=== PATIENT | female | born 1960 | race Caucasian/White ===

== ENCOUNTER 2020-09-23 14:13 | Observation (INO) | payer OTHER ==
[2020-09-23 16:28] LABS: #Basophils 0.1 thou/uL (0.0-0.2); #Eosinphils 0.2 thou/uL (0.0-0.7); #Lymphocytes 1.4 thou/uL (1.20-3.40); #Monocytes 1.2 thou/uL (0.11-0.59); #Neutrophils 7.8 thou/uL (1.40-6.50); %Basophils 0.7 % (0.0-1.0); %Eosinophils 1.7 % (0.0-10.0); %Lymphocytes 13.2 % (21.0-51.0); %Monocytes 10.9 % (0.0-10.0); %Neutrophils 73.6 % (42.0-75.0); Hemoglobin 13.6 g/dL (12.0-16.0); Mean Corpuscular HGB CONC 32.7 g/dL (32.0-36.0); Mean Corpuscular Hemoglobin 28.5 pg (27.0-31.0); Mean Corpuscular Volume 87.2 fL (78.0-98.0); Mean Platelet Volume 10.1 fL (7.4-10.4); Platelet Count 160 thou/uL (130-400); RBC Distribution Width 11.4 % (11.5-14.5); Red Blood Cell (RBC) Count 4.78 mill/uL (4.20-5.40); White Blood Cell (WBC) Count 10.5 thou/uL (4.8-10.8)
[2020-09-23] MEDS ORDERED: Ketorolac Tromethamine 30 MG/ML VIAL ONE (16:36)
[2020-09-23] MEDS ORDERED: Fentanyl 100 MCG/2 ML VIAL ONE ×2 (16:36→18:24)
[2020-09-23] MEDS ORDERED: Ondansetron PF 4 MG/2 ML Vial ONE (16:36)
[2020-09-23 16:50] LABS: ALT (SGPT) 73 U/L (8-55); AST (SGOT) 17 U/L (5-34); Albumin 3.6 g/dL (3.5-5.0); Alkaline Phosphatase 133 U/L (40-110); Anion Gap 14 mmol/L (10-20); BUN (Urea Nitrogen) 33 mg/dL (9.8-20.1); Bilirubin, Total 0.4 mg/dL (0.2-1.2); Calc. Creatinine Clearance 0 mL/min (70-130); Calcium 9.2 mg/dL (7.8-10.44); Carbon Dioxide 25 mmol/L (22-29); Chloride 106 mmol/L (98-107); Estimated GFR-MDRD 48; Globulin 2.8 g/dL (2.4-3.5); Glucose 147 mg/dL (70-105); Potassium 3.5 mmol/L (3.5-5.1); Protein, Total 6.4 g/dL (6.0-8.3); Sodium 141 mmol/L (136-145)
--- NOTE | 2020-09-23 17:32 | CT ---
CT abdomen and pelvis noncontrast HISTORY: Left flank pain. COMPARISON: 07/28/2020. FINDINGS: Tiny nonspecific subpleural nodules are again demonstrated at each lung base. There is dist ention of the left renal collecting system to the level of an oval calculus at the UPJ that is 0.6 cm width by 0.9 cm length. The left ureter beyond this point is decompressed and runs immediately adj acent to the left ovary contains dystrophic calcification. Tiny calcifications at the inferior pole of the left kidney measure up to 0.3 cm. There is significan t fluid stranding surrounding the left kidney and along the left retroperitoneum adjacent to the ureter. The right renal collecting system and ureter are decompressed. Multiple calcifications within nondila dg calyces are again demonstrated, measuring 0.6 cm greatest diameter at the inferior pole. Urinary bladder is unremarkable. Phleboliths are apparent within the pelvis. Lack of contrast limits evaluation of the soft tissues. Bariatric type surgery of the stomach is evid ent. Gallbladder is surgically absent. Postoperative changes of lumbar spine and right hip are apparent. Intramuscular lipoma associated with the left iliopsoas muscle is apparent. IMPRESSION : High-grade obstruction at a 6 mm x 9 mm left UPJ calculus with findings suggestive of forniceal ruptu re. Additional nonobstructing bilateral renal calculi. Other incidental-type findings are stable.
[2020-09-23 17:45] LABS: Bacteria/HPF 3+ HPF (None Seen); Bilirubin Negative (Negative); Blood, Urine 1+ (Negative); Calcium Oxalate Crystals Rare HPF (None Seen); Clarity Clear (Clear); Glucose, Urine (Dipstick) Normal (Negative); Ketone, Urine 10 mg/dL (Negative); Leukocyte 250 Leu/uL (Negative); Nitrite Negative (Negative); Protein, Urine (Dipstick) Negative (Neg-Trace); Specific Gravity, Urine 1.011 (1.002-1.036); Squamous Epithelial 0-3 HPF (0-3); Urobilinogen Normal mg/dL (Less than 2); WBC/HPF 21-50 HPF (0-3); pH, Urine 7.5 (5.0-9.0)
[2020-09-23] MEDS ORDERED: cefTRIAXone\\ROCEPHIN 2 GM VIAL ONE ×2 (18:24→18:26)
--- NOTE | 2020-09-23 20:27 | PDOC.HHP ---
Hospitalist HPI - History of Present Illness Left flank pain History of Present Illness: 59-year-old woman with a history of nephrolithiasis, history of morbid obesity status post gastric sleeve presented to the emergency department with a complaint of left flank pain, maximum severity 10/10, colicky in nature, no known aggravating or relieving factors, not relieved by Toradol, partially relieved by IV fentanyl given in the ED. UA suggest the presence of UTI. CT abdomen and pelvis done in the emergency department demonstrated high-grade UPJ obstruction secondary to left UPJ calculus with findings suggestive of forniceal rupture. Urologist was contacted in the ED who recommended admission to the spitalist service with IV antibiotics for him to consult. Hospitalist ROS - Review of Systems Other: Patient denied any fever, she denied any chest pain, she denied any nausea vomiting or dysuria. Except as documented, all other systems reviewed and negative. - Medication Medications: Medication Instructions Recorded Confirmed Type Chlorzoxazone [Parafon Forte DSC] 1 tab PO DAILY PRN 05/12/15 09/23/20 History Torsemide [Demadex] 1 tab PO PRN PRN 05/12/15 09/23/20 History Acetaminophen With Codeine 300 mg PO PRN PRN 09/23/20 09/23/20 History [Tylenol with Codeine #3] Hospitalist History - Past Medical History Other Medical History: History of morbid obesity status post gastric sleeve surgery. Nephrolithiasis. - Past Surgical History Other Surgical History: Gastric sleeve surgery Right shoulder surgery. - Family History Other Family History: Mother had dementia and heart failure. Father is diagnosed with liver lesions. - Social History Smoking Status: Never smoker Alcohol: reports: None Living Situation: With Family - Exam General Appearance: NAD, awake alert Eye: PERRL, anicteric sclera ENT: normocephalic atraumatic, moist mucosa Neck: supple, no JVD Heart: RRR, no murmur, normal peripheral pulses Respiratory: CTAB, no wheezes, no rales Gastrointestinal: soft, non-tender, non-distended Extremities: no cyanosis, no edema Skin: normal turgor, no rashes Neurological: cranial nerve grossly intact, no weakness, no focal deficits Musculoskeletal: normal tone, normal strength Psychiatric: normal affect, normal behavior, A&O x 3 Hospitalist Results - Labs Result Diagrams: 09/23/20 16:15 09/23/20 16:15 Lab results: WBC 10.5 thou/uL (4.8-10.8) 09/23/20 16:15 Hgb 13.6 g/dL (12.0-16.0) 09/23/20 16:15 Hct 41.7 % (36.0-47.0) 09/23/20 16:15 MCV 87.2 fL (78.0-98.0) 09/23/20 16:15 Plt Count 160 thou/uL (130-400) 09/23/20 16:15 Neutrophils % 73.6 % (42.0-75.0) 09/23/20 16:15 Sodium 141 mmol/L (136-145) 09/23/20 16:15 Potassium 3.5 mmol/L (3.5-5.1) 09/23/20 16:15 Chloride 106 mmol/L (98-107) 09/23/20 16:15 Carbon Dioxide 25 mmol/L (22-29) 09/23/20 16:15 BUN 33 mg/dL (9.8-20.1) H 09/23/20 16:15 Creatinine 1.15 mg/dL (0.6-1.1) H 09/23/20 16:15 Glucose 147 mg/dL (70-105) H 09/23/20 16:15 Calcium 9.2 mg/dL (7.8-10.44) 09/23/20 16:15 Total Bilirubin 0.4 mg/dL (0.2-1.2) 09/23/20 16:15 AST 17 U/L (5-34) 09/23/20 16:15 ALT 73 U/L (8-55) H 09/23/20 16:15 Alkaline Phosphatase 133 U/L (40-110) H 09/23/20 16:15 Serum Total Protein 6.4 g/dL (6.0-8.3) 09/23/20 16:15 Albumin 3.6 g/dL (3.5-5.0) 09/23/20 16:15 Urine Ketones 10 mg/dL (Negative) A 09/23/20 17:22 Urine Blood 1+ (Negative) A 09/23/20 17:22 Urine Nitrite Negative (Negative) 09/23/20 17:22 Ur Leukocyte Esterase 250 Padmini/uL (Negative) A 09/23/20 17:22 Urine RBC 4-6 HPF (0-3) A 09/23/20 17:22 Urine WBC 21-50 HPF (0-3) A 09/23/20 17:22 Ur Squamous Epith Cells 0-3 HPF (0-3) 09/23/20 17:22 Urine Bacteria 3+ HPF (None Seen) A 09/23/20 17:22 Hospitalist H&P A/P - Problem (1) Nephrolithiasis Status: Acute (2) Ureteric obstruction Code(s): N13.5 - CROSSING VESSEL AND STRICTURE OF URETER W/O HYDRONEPHROSIS Status: Acute (3) UTI (urinary tract infection) Status: Acute - Plan Plan: Admit to medical floor. Patient given IV Levaquin in the ED. Patient allergy to penicillin acknowledged. We will continue IV Levaquin. Consult to urology requested Monitor BMP to follow serum creatinine. Pain management with IV fentanyl. Follow urine culture.
[2020-09-23] MEDS ORDERED: Sodium Chloride 0.9% 1,000 ML IV SCH (20:30)
[2020-09-23 20:36] LABS: SARS-CoV-2 NAA Rapid Test Not Detected (NotDetected)
[2020-09-23] MEDS: Fentanyl 100 MCG/2 ML VIAL SLOW IVP PRN (22:58)
[2020-09-23 23:01] VITALS: BMI 28.3
[2020-09-23] MEDS: Heparin 5,000 UNITS/ML VIAL SC SCH (23:30)
[2020-09-24] MEDS: Ondansetron PF 4 MG/2 ML Vial IVP PRN ×2 (02:12→08:11)
[2020-09-24] MEDS: Fentanyl 100 MCG/2 ML VIAL SLOW IVP PRN ×3 (04:03→11:35)
[2020-09-24 07:01] LABS: Anion Gap 9 mmol/L (10-20); BUN (Urea Nitrogen) 31 mg/dL (9.8-20.1); Calc. Creatinine Clearance 51 mL/min (70-130); Calcium 8.3 mg/dL (7.8-10.44); Carbon Dioxide 25 mmol/L (22-29); Chloride 110 mmol/L (98-107); Estimated GFR-MDRD 37; Glucose 130 mg/dL (70-105); Potassium 3.4 mmol/L (3.5-5.1); Sodium 141 mmol/L (136-145)
[2020-09-24 07:03] LABS: #Basophils 0.1 thou/uL (0.0-0.2); #Eosinphils 0.1 thou/uL (0.0-0.7); #Lymphocytes 1.1 thou/uL (1.20-3.40); #Monocytes 0.9 thou/uL (0.11-0.59); %Basophils 0.6 % (0.0-1.0); %Eosinophils 1.3 % (0.0-10.0); %Lymphocytes 11.6 % (21.0-51.0); %Monocytes 9.6 % (0.0-10.0); %Neutrophils 76.9 % (42.0-75.0); Hemoglobin 12.2 g/dL (12.0-16.0); Mean Corpuscular HGB CONC 31.9 g/dL (32.0-36.0); Mean Corpuscular Volume 87.6 fL (78.0-98.0); Platelet Count 140 thou/uL (130-400); RBC Distribution Width 11.4 % (11.5-14.5); Red Blood Cell (RBC) Count 4.35 mill/uL (4.20-5.40); White Blood Cell (WBC) Count 9.1 thou/uL (4.8-10.8)
[2020-09-24] MEDS: Sodium Chloride 0.9% 1,000 ML IV SCH ×4 (07:38→23:54)
--- NOTE | 2020-09-24 08:07 | RAD ---
EXAM: Chest PA and lateral: HISTORY: Preoperative radiograph COMPARISON: None FINDINGS: Heart: Normal cardiac silhouette Aorta: Atherosclerotic Pulmonary vessels: Normal Costophrenic angles: Blunting of the left costophrenic angle likely due to small left-sided pleural e ffusion. Lungs: No consolidation or masses. Pneumothorax: No pneumothorax Osseous structures: No osseous abnormalities IMPRESSION: Small left-sided pleural effusion.
--- NOTE | 2020-09-24 08:08 | RAD ---
EXAM: Single view of the abdomen HISTORY: Preoperative radiograph COMPARISON: CT abdomen 09/23/2020 FINDINGS: Single view of the abdomen shows a nonspecific, nonobstructive bowel gas pattern. There is a 10 mm calcification lateral to the L3 vertebral body on the left. Calcifications project over both renal shadows measuring up to 8 mm in size. Cholecystectomy clips are seen. Chago are seen in the stomach from prior gastric sleeve procedure. Phleboliths are in the pelvis. Degenerative and postsurgical changes are seen in the spine. The patient has a right hip prosthesis. IMPRESSION: 1. Left ureteral calcification 2. Bilateral nephrolithiasis
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
[2020-09-24] MEDS ORDERED: Ketorolac Tromethamine 30 MG/ML VIAL IVP PRN (08:47)
[2020-09-24] MEDS ORDERED: traMADol HCl 50 MG TAB PO PRN (08:48)
[2020-09-24 09:18] LABS: INR-International Normal Ratio 1.1; Prothrombin Time 14.3 sec (12.0-14.7)
[2020-09-24 09:19] LABS: PTT 31.6 sec (22.9-36.1)
[2020-09-24] MEDS ORDERED: Ondansetron PF 4 MG/2 ML Vial ONE (10:18)
[2020-09-24] MEDS ORDERED: Lidocaine 1% PF 5 ML VIAL ONE (10:18)
[2020-09-24] MEDS ORDERED: PROPOFOL 200 MG/20 ML VIAL ONE (10:18)
[2020-09-24] MEDS ORDERED: PHENYLEPHRINE-NS 100 MCG/ML 10 ML SYRINGE ONE (10:18)
[2020-09-24] MEDS ORDERED: Metoclopramide HCl 10 MG/2 ML VIAL ONE (10:18)
[2020-09-24] MEDS: Lidocaine 5% Patch TD SCH (10:28)
[2020-09-24] MEDS ORDERED: Fentanyl 100 MCG/2 ML VIAL ONE ×2 (12:34→13:45)
[2020-09-24] MEDS ORDERED: Phenylephrine 10 MG/ML VIAL ONE (13:44)
[2020-09-24] MEDS ORDERED: Famotidine/PF 20 mg/2ml Vial ONE (13:45)
[2020-09-24] MEDS ORDERED: Levofloxacin 500 mg/D5W 100 ml Premix Bag ONE (14:06)
[2020-09-24] MEDS ORDERED: Iothalamate Meglumine 60% 50 ML VIAL FS ONE (14:08)
--- NOTE | 2020-09-24 14:51 | RAD ---
EXAM: XR IVP Retrograde PROVIDED CLINICAL HISTORY: Left ureteral calculus with bilateral renal calculi. COMPARISON: CT abdomen and pelvis on 09/23/2020 and AP abdominal radiograph on 09/24/2020. FINDINGS/IMPRESSION: Images demonstrate opacification of each renal collecting system without hydronephrosis on the right. There is minimal left hydronephrosis present. No filling defects are seen within either renal collecting system to correspond to bilateral renal calculi noted on CT exam. Bilateral ureteral stent s are in place. There is a calculus adjacent to the left L3 transverse process along the course of the ureteral stent corresponding to left ureteral calculus seen on the abdomen and pelvis. Postoperat jaylon changes lumbosacral junction are present. Correlation with intraoperative findings is recommended.
[2020-09-24] MEDS ORDERED: Promethazine HCl 25 MG/ML VIAL IM PRN (14:55)
[2020-09-24] MEDS ORDERED: Promethazine HCl 25 MG/ML VIAL SLOW IVP PRN (14:55)
[2020-09-24] MEDS ORDERED: Ondansetron HCl/PF 4 MG/2 ML Vial IVP PRN (14:55)
--- NOTE | 2020-09-24 18:54 | PDOC.HOSPP ---
- Subjective Encounter Date: 09/24/20 Encounter Time: 18:53 Subjective: Patient seen for follow-up regarding hydronephrosis. She reports that her pain has improved significantly following ureteric stent placement today. - Objective Vital Signs & Weight: Vital Signs (12 hours) Temp Pulse Resp BP Pulse Ox 09/24/20 10:16 98.1 F 67 16 173/74 H 99 09/24/20 08:00 99 Weight Weight 170 lb I&O: 09/23/20 09/24/20 09/25/20 06:59 06:59 06:59 Intake Total 13 Balance 13 Result Diagrams: 09/24/20 05:40 09/24/20 05:40 Additional Labs: Labs and MAR reviewed by me Hospitalist ROS - Review of Systems Cardiovascular: denies: chest pain, palpitations, orthopnea, paroxysmal noc. dyspnea, edema, light headedness Gastrointestinal: denies: nausea, vomiting, abdominal pain, diarrhea, constip ation, melena, hematochezia - Medication Medications: Active Medications Generic Name Dose Route Start Last Admin Trade Name Freq PRN Reason Stop Dose Admin Fentanyl 25 mcg 09/23/20 20:24 09/24/20 11:35 Fentanyl 100 Mcg/2 Ml Vial SLOW IVP 25 mcg Q4H PRN Administration Moderate to Severe Pain (6-10) Heparin Sodium (Porcine) 5,000 units 09/23/20 21:00 09/23/20 23:30 Heparin 5,000 Units/Ml Vial SC 5,000 units TID PRADIP Administration Sodium Chloride 1,000 mls @ 120 mls/hr 09/24/20 06:45 09/24/20 16:17 Normal Saline 0.9% IV Not Given .Q8H20M PRADIP Lidocaine 1 patch 09/24/20 09:00 09/24/20 10:28 Lidocaine 5% Patch TD 1 patch Q24H PRADIP Administration Ondansetron HCl 4 mg 09/23/20 20:19 09/24/20 08:11 Ondansetron Pf 4 Mg/2 Ml Vial IVP 4 mg Q6H PRN Administration Nausea/Vomiting Sodium Chloride 10 ml 09/24/20 09:00 09/24/20 08:12 Flush - Normal Saline 10 Ml Syringe IVF 10 ml Q12HR PRADIP Administration - Exam General Appearance: awake alert Eye: anicteric sclera ENT: moist mucosa Neck: supple Heart: RRR Respiratory: CTAB Gastrointestinal: soft, non-tender Skin: no rashes Psychiatric: normal affect, normal behavior Hosp A/P - Plan -Assessment (1) hydronephrosis Status: Acute (2) Nephrolithiasis Status: Acute (3) Ureteric obstruction Code(s): N13.5 - CROSSING VESSEL AND STRICTURE OF URETER W/O HYDRONEPHROSIS Status: Acute (4) UTI (urinary tract infection) Status: Acute - Plan Continue IV levofloxacin, follow urine culture. Appreciate urology service input. Consult to urology requested Monitor BMP to follow serum creatinine. Pain management with IV fentanyl. Lidocaine patch added. Patient actually reports significant improvement following the procedure today.
[2020-09-24] MEDS ORDERED: Lidocaine Patch Removal 1 EACH TOP SCH (21:00)
--- NOTE | 2020-09-25 04:14 | OP ---
DATE OF PROCEDURE: 09/24/2020 PREOPERATIVE DIAGNOSES: Left ureteral stone, bilateral renal stones. POSTOPERATIVE DIAGNOSES: Left ureteral stone, bilateral renal stones. PROCEDURES PERFORMED: Cystoscopy with bilateral retrograde pyelogram and bilateral ureteral stent placement. ANESTHESIA: General. COMPLICATIONS: None. ESTIMATED BLOOD LOSS: None. SPECIMEN: None. DESCRIPTION OF PROCEDURE: The patient and I spoke this morning shortly after my partner saw her and we discussed her options and decided that we would place stents on both sides to allow easy access for ureteroscopy in the coming weeks and to prevent acute pain from an obstructing stone on the right side between now and then. After informed consent, she was taken to the operating room and transferred to the table. Anesthesia was established. A time-out was performed ensuring the correct patient, site, and procedure. Preoperative antibiotics were administered. She was prepped and draped in the lithotomy position. I began by inserting the rigid cystoscope through the urethra into the bladder. The left ureteral orifice was cannulated with a Pollack catheter, and a retrograde pyelogram was performed showing good filling of the ureter with an area of obstruction at the UPJ and hydronephrosis beyond. A Pollack catheter was then inserted into the right ureter and a retrograde was performed showing good filling of the ureter and renal pelvis without evidence of obstruction. A wire was then passed into the left ureter and negotiated into the upper pole. A 4.8 x 26 double-J ureteral stent was positioned over the wire with a curl in the kidney and curl in the bladder. Wire was then passed into the right renal pelvis and a similar stent, 4.8 x 26 double-J was placed over the wire with a curl in the kidney and curl in the bladder. Completion images were taken. The bladder was then drained. She was awoken from anesthesia, transferred back to her hospital bed, and taken to PACU in stable condition, where she will return to the floor upon recovery. Job ID: [id number]
[2020-09-25 08:22] VITALS: BP 94/60; TEMP 98.4
[2020-09-25] MEDS: Heparin 5,000 UNITS/ML VIAL SC SCH (08:50)
[2020-09-25] MEDS: Lidocaine 5% Patch TD SCH (08:50)
--- NOTE | 2020-09-25 09:35 | DIS ---
DATE OF ADMISSION: 09/23/2020 DATE OF DISCHARGE: 09/25/2020 DISPOSITION: Discharged to home. FINAL DIAGNOSES: Hydronephrosis, renal colic, and bilateral renal stones. DISCHARGE MEDICATIONS: 1. Flomax 0.4 mg a day. 2. Oxybutynin. 3. Toradol. 4. Levaquin. Prescriptions written by , doses not put in the discharge plan. She is currently on 750 mg of Levaquin a day. ALLERGIES: NOTED TO MEPERIDINE, HYDROCODONE, MORPHINE, FLOXIN, PENICILLINS, PRAZOSIN, TRAMADOL, AND SURGICAL MOHSEN. CODE STATUS: Full. PENDING AT THE TIME OF DISCHARGE: The urine culture is no growth at 24 hours. DIET: No restriction. HOSPITAL COURSE: The patient presented to the emergency room with apparent renal colic. Urologist was called, who recommended admission to Hospitalist Service with antibiotics for to consult. The patient was placed on IV Levaquin. Urology consult requested. Pain management with IV fentanyl. Laboratory on admission; CBC essentially normal. INR 1.0. Creatinine was 1.15, followup was 1.44. Urine showed few red cells, few white cells, and positive blood. Serology was negative. Consultation was done by Dr. Maryann Griggs on 09/24/2020. Dr. Caio Bear, Genitourinary, did a cystoscopy with bilateral retrograde pyelogram and bilateral ureteral stent placement. The patient's pain was adequately relieved with this. This morning, Dr. Bear made rounds and put in discharge orders. I was called to approve the discharge. I spoke with the patient. Vital signs were stable. Pain was relieved. She was comfortable with going home with followup per Dr. Griggs. Job ID: [id number] [facility]
== END 2020-09-25 09:40 | disposition home or self-care (01) ==
LOC: ERS 14:13 → ERHOLD 19:31 → INTOOBSV 19:32 → UNDOADMOB 19:32 → ERHOLD 19:32 → SURG A 22:55
PROVIDERS: ADMIT Internal Medicine; ATTEND Internal Medicine
PROC: 0T788DZ Dilation of Bilateral Ureters with Intraluminal Device, Via Natural or Artificial Opening Endoscopic (ICD-10-PCS; principal; 2020-09-24)
DX: N13.2 Hydronephrosis with renal and ureteral calculous obstruction (principal); N39.0 Urinary tract infection, site not specified; I10 Essential (primary) hypertension; G43.909 Migraine, unspecified, not intractable, without status migrainosus; G47.30 Sleep apnea, unspecified; G89.29 Other chronic pain; M54.9 Dorsalgia, unspecified; Z88.0 Allergy status to penicillin; Z88.1 Allergy status to other antibiotic agents; Z88.5 Allergy status to narcotic agent; Z98.84 Bariatric surgery status; Z20.828 Contact with and (suspected) exposure to other viral communicable diseases
CPT/HCPCS: 36415; 71046; 74018; 74176; 74420; 80048; 80053; 81003; 81015; 85025; 85610; 85730; 87086; 93005; 93010; 96365; 96366; 96367; 96375; 96376; G0378; J0696; J1644; J1885; J1956; J2370; J2405; J2704; J2765; J3010; S0028; U0002

== ENCOUNTER 2020-09-29 12:03 | Emergency (ER) | payer OTHER ==
[2020-09-29] MEDS ORDERED: Ketorolac Tromethamine 30 MG/ML VIAL ONE (12:33)
[2020-09-29 13:10] LABS: #Basophils 0.1 thou/uL (0.0-0.2); #Eosinphils 0.4 thou/uL (0.0-0.7); #Lymphocytes 1.9 thou/uL (1.20-3.40); #Monocytes 0.7 thou/uL (0.11-0.59); #Neutrophils 5.6 thou/uL (1.40-6.50); %Basophils 0.7 % (0.0-1.0); %Eosinophils 4.7 % (0.0-10.0); %Monocytes 8.5 % (0.0-10.0); %Neutrophils 64.1 % (42.0-75.0); Hemoglobin 12.8 g/dL (12.0-16.0); Mean Corpuscular Hemoglobin 28.1 pg (27.0-31.0); Mean Corpuscular Volume 87.7 fL (78.0-98.0); Mean Platelet Volume 10.8 fL (7.4-10.4); Platelet Count 182 thou/uL (130-400); RBC Distribution Width 11.5 % (11.5-14.5); Red Blood Cell (RBC) Count 4.55 mill/uL (4.20-5.40); White Blood Cell (WBC) Count 8.7 thou/uL (4.8-10.8)
[2020-09-29 13:22] LABS: Clarity Turbid (Clear); Leukocyte Unable to Interpret (Negative); Nitrite Unable to Interpret (Negative); Protein, Urine (Dipstick) > or equal to 300 mg/dL (Neg-Trace); Specific Gravity, Urine 1.018 (1.002-1.036); pH, Urine 5.9 (5.0-9.0)
[2020-09-29 13:23] LABS: Bilirubin Unable to Interpret (Negative); Blood, Urine Unable to Interpret (Negative); Glucose, Urine (Dipstick) Unable to Interpret mg/dL (Negative); Ketone, Urine Unable to Interpret mg/dL (Negative); Urobilinogen UNABLE TO INTERPRET mg/dL (Less than 2)
[2020-09-29 13:24] LABS: Bacteria/HPF 1+ HPF (None Seen); RBC/HPF Greater than 50 HPF (0-3); WBC/HPF 21-50 HPF (0-3)
--- NOTE | 2020-09-29 13:25 | RAD ---
EXAM: Single view of the abdomen HISTORY: Hematuria and left kidney pain after stent placement on 09/24/2020 COMPARISON: 09/24/2020 FINDINGS: Single view of the abdomen shows a nonspecific, nonobstructive bowel gas pattern. There are bilateral ureteral stents appear in good position. There is a questionable calcification along the proximal aspect of the right stent. No obvious calcifications are seen along the left stent. Hardwar e is seen in the spine and right hip. Cholecystectomy clips are seen. IMPRESSION: Bilateral ureteral stents as above.
[2020-09-29 13:29] LABS: ALT (SGPT) 19 U/L (8-55); AST (SGOT) 14 U/L (5-34); Albumin 3.5 g/dL (3.5-5.0); Alkaline Phosphatase 98 U/L (40-110); Anion Gap 16 mmol/L (10-20); BUN (Urea Nitrogen) 33 mg/dL (9.8-20.1); Bilirubin, Total 0.3 mg/dL (0.2-1.2); Calc. Creatinine Clearance 0 mL/min (70-130); Calcium 8.9 mg/dL (7.8-10.44); Carbon Dioxide 23 mmol/L (22-29); Chloride 108 mmol/L (98-107); Estimated GFR-MDRD 57; Glucose 125 mg/dL (70-105); Potassium 3.8 mmol/L (3.5-5.1); Protein, Total 6.5 g/dL (6.0-8.3); Sodium 143 mmol/L (136-145)
== END 2020-09-29 14:18 | disposition home or self-care (01) ==
LOC: ERS 12:03
DX: R31.9 Hematuria, unspecified (principal)
CPT/HCPCS: 74018; 80053; 81003; 81015; 84484; 85025; 93005; 96374; J1885

== ENCOUNTER 2020-09-30 09:44 | Outpatient (CLI) | payer OTHER ==
[2020-09-30 22:24] LABS: SARS-CoV-2 MS2 Positive; SARS-CoV-2 N Gene Negative; SARS-CoV-2 S Gene Negative; SARS-CoV-2 by NAA Not Detected (NotDetected); SARS-CoV-2 orf1ab Negative
== END 2020-09-30 09:45 | disposition home or self-care (01) ==
LOC: LABBT 09:44
PROVIDERS: ATTEND Urology
DX: N20.0 Calculus of kidney (principal); Z20.828 Contact with and (suspected) exposure to other viral communicable diseases
CPT/HCPCS: 87635; U0003

== ENCOUNTER 2020-10-03 08:26 | Day surgery (SDC) | payer OTHER ==
[2020-10-02 14:29] VITALS: BMI 28.3
[2020-10-03] MEDS ORDERED: Levofloxacin 500 mg/D5W 100 ml Premix Bag ONE (09:37)
[2020-10-03] MEDS ORDERED: Famotidine/PF 20 mg/2ml Vial ONE (10:10)
[2020-10-03] MEDS ORDERED: Ondansetron PF 4 MG/2 ML Vial ONE (10:10)
[2020-10-03] MEDS ORDERED: Scopolamine 1.5 mg/72 hour Patch ONE (10:11)
[2020-10-03] MEDS ORDERED: Iothalamate Meglumine 60% 50 ML VIAL FS ONE (10:18)
[2020-10-03] MEDS ORDERED: Fentanyl 100 MCG/2 ML VIAL ONE ×2 (11:10→11:52)
[2020-10-03] MEDS ORDERED: Oxybutynin 5 MG TAB ONE (11:46)
[2020-10-03] MEDS ORDERED: Ketorolac Tromethamine 30 MG/ML VIAL ONE (11:46)
--- NOTE | 2020-10-03 11:49 | OP ---
DATE OF PROCEDURE: 10/03/2020 PREOPERATIVE DIAGNOSIS: Bilateral renal stones. POSTOPERATIVE DIAGNOSIS: Bilateral renal stones. PROCEDURES PERFORMED: Bilateral ureteroscopy with laser lithotripsy, basket extraction of stone, retrograde pyelogram, intraoperative interpretation of radiologic imaging, and 4.8 x 24 double-J ureteral stent with strings. ANESTHESIA: General. COMPLICATIONS: None. ESTIMATED BLOOD LOSS: None. SPECIMEN: Stone fragments. DESCRIPTION OF PROCEDURE: After informed consent, the patient was taken to the operating room, transferred to the table on her own power. Anesthesia was established. A time-out was performed showing correct patient, site, and procedure. Preoperative antibiotics were administered. She was prepped and draped in the lithotomy position. I began by inserting the rigid cystoscope through the urethra into the bladder. The right stent was grasped and brought out through the urethral meatus. A wire was passed through this into the renal pelvis under fluoroscopic guidance. The scope was then reinserted and the left stent brought out through the urethral meatus and a second wire was passed through this into the left renal pelvis under fluoroscopic guidance. An access sheath was placed over the left wire into the proximal ureter under fluoroscopic guidance. A retrograde pyelogram was performed through this showing filling defect at the UPJ with minimal hydronephrosis. The flexible ureteroscope was guided through the access sheath into the proximal ureter, where the stone was found to be impacted at the UPJ. This was treated with a 200 micron laser fiber using a dusting technique resulting in only a couple clinically significant stone fragments. The scope was then passed into the renal pelvis and another stone was identified. This was also treated using a dusting technique resulting in no clinically significant stone fragments. The 1.9 cm Nitinol basket was used to retrieve the two clinically significant stone fragments, which were passed off as specimen. The pelvis was filled with contrast before removing the scope and access sheath, leaving a wire in place. A 4.8 x 24 double-J ureteral stent was passed over the wire with a curl in the kidney and curl in the bladder under fluoroscopic guidance. The access sheath was placed over the right wire and then the semi-rigid ureteroscope was passed through this into the renal pelvis. Two stones were identified in the lower pole, which were both treated using dusting technique. Known clinically significant stone fragments remained, which was grasped with the basket and brought out, passed off as specimen. The renal pelvis was then filled with contrast before removing the scope and access sheath. A 4.8 x 24 double-J ureteral stent was passed over the wire with a curl in the kidney and curl in the bladder under fluoroscopic guidance. The bladder was drained. The strings from both stents were taped to the patient's suprapubic region with a Tegaderm. She was then awoken from anesthesia, transferred back to her hospital bed, and taken to PACU in stable condition, where she will discharge home upon recovery. Job ID: [id number]
--- NOTE | 2020-10-03 12:13 | RAD ---
EXAM: Retrograde IVP HISTORY: Kidney stones COMPARISON: 09/29/2020, 09/24/2020 FINDINGS/IMPRESSION: Limited intraoperative fluoroscopic views of the retrograde IVP were submitted f or interpretation. There is a left ureteral stent which is unchanged in position. A calcification is initially seen adjacent to the proximal aspect of the left ureteral stent. The calcification is no t visualized on the latter images. Eventually, another left ureteral stent is placed in good position. A wire and a lithotripsy device is eventually placed in the right renal collecting system. There is mild right hydronephrosis. There is a questionable filling defect in the proximal aspect of the right ureter. This is in the region where there is a potential calcification in the proximal right ur eter on the initial images.
[2020-10-03] MEDS ORDERED: ePHEDrine 50 MG/ML VIAL ONE (13:31)
[2020-10-03] MEDS ORDERED: Dexamethasone 20 MG/5 ML VIAL ONE (13:31)
[2020-10-03] MEDS ORDERED: PROPOFOL 200 MG/20 ML VIAL ONE (13:31)
[2020-10-03] MEDS ORDERED: PHENYLEPHRINE-NS 100 MCG/ML 10 ML SYRINGE ONE (13:31)
[2020-10-03] MEDS ORDERED: Lidocaine 1% PF 5 ML VIAL ONE (13:31)
== END 2020-10-03 13:10 | disposition home or self-care (01) ==
LOC: SDC 08:26
PROVIDERS: ATTEND Urology
PROC: 0TC78ZZ Extirpation of Matter from Left Ureter, Via Natural or Artificial Opening Endoscopic (ICD-10-PCS; principal; 2020-10-03)
PROC: 0TC48ZZ Extirpation of Matter from Left Kidney Pelvis, Via Natural or Artificial Opening Endoscopic (ICD-10-PCS; principal; 2020-10-03)
PROC: 0TC68ZZ Extirpation of Matter from Right Ureter, Via Natural or Artificial Opening Endoscopic (ICD-10-PCS; principal; 2020-10-03)
PROC: 0TC38ZZ Extirpation of Matter from Right Kidney Pelvis, Via Natural or Artificial Opening Endoscopic (ICD-10-PCS; principal; 2020-10-03)
PROC: 0T788DZ Dilation of Bilateral Ureters with Intraluminal Device, Via Natural or Artificial Opening Endoscopic (ICD-10-PCS; principal; 2020-10-03)
DX: N13.2 Hydronephrosis with renal and ureteral calculous obstruction (principal); I10 Essential (primary) hypertension; E11.9 Type 2 diabetes mellitus without complications; G47.30 Sleep apnea, unspecified; Z79.899 Other long term (current) drug therapy; Z88.0 Allergy status to penicillin; Z88.1 Allergy status to other antibiotic agents; Z88.5 Allergy status to narcotic agent; Z88.8 Allergy status to other drugs, medicaments and biological substances; Z91.040 Latex allergy status; Z91.048 Other nonmedicinal substance allergy status
CPT/HCPCS: 74420; 82365; 88300; J1100; J1885; J1956; J2405; J2704; J3010; J3490; S0028

== ENCOUNTER 2021-08-18 09:24 | Outpatient (CLI) | payer MEDICARE, OTHER | END 2021-08-18 09:25 | disposition home or self-care (01) | LOC: BICRAD 09:24 | PROVIDERS: ATTEND Podiatrist | DX: S92.351K Displaced fracture of fifth metatarsal bone, right foot, subsequent encounter for fracture with nonunion (principal); M79.671 Pain in right foot ==

== ENCOUNTER 2021-12-18 10:15 | Day surgery (SDC) | payer MEDICARE, MEDICAID ==
[2021-12-15 11:42] VITALS: BMI 31.6
[2021-12-18] MEDS ORDERED: Ondansetron PF 4 MG/2 ML Vial ONE (12:15)
[2021-12-18] MEDS ORDERED: Lidocaine 1% PF 5 ML VIAL ONE (12:15)
[2021-12-18] MEDS ORDERED: PROPOFOL 200 MG/20 ML VIAL ONE (12:15)
[2021-12-18] MEDS ORDERED: Dexamethasone 20 MG/5 ML VIAL ONE (12:15)
== END 2021-12-18 13:51 | disposition home or self-care (01) ==
LOC: MRI 10:15
PROVIDERS: ATTEND Family Medicine
DX: M50.91 Cervical disc disorder, unspecified, high cervical region (principal); M43.12 Spondylolisthesis, cervical region; Z79.899 Other long term (current) drug therapy; Z88.0 Allergy status to penicillin; Z88.1 Allergy status to other antibiotic agents; Z88.2 Allergy status to sulfonamides; Z88.5 Allergy status to narcotic agent; Z88.6 Allergy status to analgesic agent; Z88.8 Allergy status to other drugs, medicaments and biological substances; Z91.040 Latex allergy status; Z91.09 Other allergy status, other than to drugs and biological substances
CPT/HCPCS: 72141